=== PATIENT | male | born 1960 | race Caucasian/White ===

== ENCOUNTER 2019-01-01 11:51 | Emergency (ER) | payer SELFPAY ==
[~2019-01-01] VITALS: Wt 75.0 kg
[2019-01-01] MEDS ORDERED: ONDANSETRON 4 MG INJ IV STA (12:21)
[2019-01-01] MEDS ORDERED: MECLIZINE 12.5 MG TAB PO ONE (12:30)
[2019-01-01] MEDS ORDERED: SOD CHLORIDE 0.9% 1,000 ML IV ONE (12:30)
[2019-01-01] MEDS ORDERED: IBUP-1542 PO (13:29)
[2019-01-01] MEDS ORDERED: MECL12.574 PO (13:29)
--- NOTE | 2019-01-01 13:46 | ERD ---
ER Documentation Chief Complaint Chief Complaint DIZZINESS AND FEELS THE ROOM SPINNING SINE TODAY. NAUSEA NO CORDOVA OR CP HPI 58-year-old male with past medical history of vertigo presenting to the emergency department, brought in by his son who is assisting with translation from [place]ian to [place]bourgish complaining of dizziness which began this morning when he woke up. He states he feels the room spinning. He denies any headache. He does report associated nausea. Symptoms are worse when turning his head from side to side rapidly. Symptoms are intermittent and last a few seconds and then resolve spontaneously. The patient denies any chest pain, headache, fever, chills, photosensitivity, photophobia, abdominal pain, syncope, or other symptoms at this time. ROS All systems reviewed and are negative except as per history of present illness. Medications Home Meds Active Scripts Ibuprofen* (Motrin*) 600 Mg Tab, 600 MG PO Q6, #30 TAB Prov:XENIA BATEMAN PA-C 01/01/19 Meclizine Hcl* (Antivert*) 12.5 Mg Tab, 12.5 MG PO Q6H PRN for DIZZINESS, #20 T AB Prov:XENIA BATEMAN PA-C 01/01/19 Allergies Allergies: Coded Allergies: No Known Allergy (Unverified , 01/01/19) PMhx/Soc Medical and Surgical Hx: pt denies Surgical Hx Hx Miscellaneous Medical Probl: Yes (Hx Vertigo) Hx Alcohol Use: No Hx Substance Use: No Hx Tobacco Use: No Smoking Status: Never smoker FmHx Family History: No diabetes Physical Exam Vitals Vital Signs Date Temp Pulse Resp B/P (MAP) Pulse Ox O2 O2 Flow FiO2 Time Delivery Rate 01/01/19 97.8 60 18 144/89 100 11:55 (107) Physical Exam Const: No acute distress Head: Atraumatic Eyes: Normal Conjunctiva ENT: Normal External Ears, Nose and Mouth. Neck: Full range of motion. No meningismus. Resp: Clear to auscultation bilaterally Cardio: Regular rate and rhythm, no murmurs Skin: No petechiae or rashes Neuro: M/S: Alert and oriented Face: EOMI, face and pharynx with normal sensation and function Motor: Normal strength throughout Sensation: Normal sensation throughout Speech: Normal Cerebel: Normal coordination Normal gait Normal finger to nose Neur: Awake and alert Psych: Normal Mood and Affect Result Diagram: 01/01/19 1241 01/01/19 1241 Results 24 hrs Laboratory Tests Test 01/01/19 12:41 White Blood Count 7.1 10^3/ul Red Blood Count 5.74 10^6/ul Hemoglobin 16.6 g/dl Hematocrit 48.8 % Mean Corpuscular Volume 85.0 fl Mean Corpuscular Hemoglobin 28.9 pg Mean Corpuscular Hemoglobin Concent 34.0 g/dl Red Cell Distribution Width 11.9 % Platelet Count 207 10^3/UL Mean Platelet Volume 8.8 fl Immature Granulocytes % 0.600 % Neutrophils % 71.0 % Lymphocytes % 20.2 % Monocytes % 5.9 % Eosinophils % 1.7 % Basophils % 0.6 % Nucleated Red Blood Cells % 0.0 /100WBC Immature Granulocytes # 0.040 10^3/ul Neutrophils # 5.1 10^3/ul Lymphocytes # 1.4 10^3/ul Monocytes # 0.4 10^3/ul Eosinophils # 0.1 10^3/ul Basophils # 0.0 10^3/ul Nucleated Red Blood Cells # 0.0 10^3/ul Prothrombin Time 12.6 Sec Prothrombin Time Ratio 1.0 INR International Normalized Ratio 0.93 Activated Partial Thromboplast Time 30.3 Sec Urine Color YELLOW Urine Clarity SLIGHTLY CLOUDY Urine pH 7.0 Urine Specific [place] 1.018 Urine Ketones TRACE mg/dL Urine Nitrite NEGATIVE mg/dL Urine Bilirubin NEGATIVE mg/dL Urine Urobilinogen NEGATIVE mg/dL Urine Leukocyte Esterase NEGATIVE [place]/ul Urine Microscopic RBC 0 /HPF Urine Microscopic WBC 1 /HPF Urine Hemoglobin NEGATIVE mg/dL Urine Glucose NEGATIVE mg/dL Urine Total Protein NEGATIVE mg/dl Sodium Level 142 mmol/L Potassium Level 4.6 mmol/L Chloride Level 103 mmol/L Carbon Dioxide Level 30 mmol/L Anion Gap 9 Blood Urea Nitrogen 20 mg/dl Creatinine 0.93 mg/dl Est Glomerular Filtrat Rate mL/min > 60 mL/min Glucose Level 168 mg/dl Calcium Level 9.6 mg/dl Current Medications Medications Dose Sig/Sole Start Time Status Last (Trade) Ordered Route PRN Stop Time Admin Dose Reason Admin Sodium 1,000 ml @ Q1H ONCE 01/01/19 DC 01/01/19 Chloride 1,000 mls/hr IV 12:30 6/3/19 12:59 13:30 Meclizine 25 mg ONCE ONCE 01/01/19 DC 01/01/19 HCl PO 12:30 01/01/19 12:59 (Antivert) 12:31 Ondansetron 4 mg ONCE STAT 01/01/19 DC 01/01/19 HCl (Zofran IV 12:21 01/01/19 12:59 Inj) 12:25 [place] [id number] Radiology Main Line: [phone] DIAGNOSTIC IMAGING REPORT Patient: PADDY BAKER : 1960 Age: 58 Sex: M MR #: [id number] DOS: 01/01/19 1221 Ordering MD: XENIA BATEMAN PA-C [facility] Room/Bed: PROCEDURE: CT Brain without contrast. CLINICAL INDICATION: Headache. TECHNIQUE: A CT of the brain without contrast was performed utilizing axial sections from the skull base through the vertex. One or more the following does reduction techniques were utilized: Automated exposure control, adjustment of the mA/ or kV according to patient's size, or use of iterative reconstruction technique. Total exam CTDIvol is 38 MGy and DLP is 634 mGy-cm. DICOM images are available. COMPARISON: None available. FINDINGS: The ventricles and sulci are mildly prominent indicative of volume loss. There is no intracranial hemorrhage, mass effect or midline shift. No abnormal intra- axial or extra-axial fluid collections are seen. The winston/white matter differentiation is well preserved. There are mild scattered foci of hypoattenuation in the periventricular, deep, and subcortical white matter, which are nonspecific in etiology but likely reflect chronic small vessel ischemic changes. The visualized paranasal sinuses are essentially clear. IMPRESSION: 1. No acute intracranial hemorrhage, transcortical infarction or mass effect. 2. Mild chronic small vessel ischemic changes. 3. Mild generalized cerebral volume loss. RPTAT: HH .Keerthi Zhang MD, MD Date Time Electronically viewed and signed by .Keerthi Zhang MD, MD on 01/01/2019 12:57 .N/ CC: XENIA BATEMAN PA-C [phone] Procedures/MDM 58-year-old male presenting to the emergency department complaining of intermittent dizziness for the past 1 day. History, physical examination, work- up most consistent with benign positional vertigo. Much lower suspicion for CVA, TIA, intracranial hemorrhage, central cause of vertigo, or other emergencies. Laboratory studies were essentially unremarkable. CT head without contrast showed no acute findings and the full report interpreted by the radiologist may be viewed above. Patient was advised to have 24 to 48-hour follow-up with his primary care physician and return to the department immediately for any new or worsening or concerning symptoms. He was in agreement with the diagnosis, plan, need for follow-up, return precautions and his questions and concerns were addressed prior to discharge. Patient's blood pressure was elevated (>120/80) but appears stable without evidence of hypertension emergency or urgency. The patient is to follow-up and pursue outpatient monitoring and therapy with their primary care physician within 1 week and return immediately if they have any new, worsening, or concerning symptoms. Departure Diagnosis: Primary Impression: Dizziness Condition: Fair Patient Instructions: Dizziness (Vertigo) and Balance Problems: Ensuring Your Safety Referrals: [facility] Usted se cordova hecho un examen mdico de control que le indica que no est en jared condicin que requiera tratamiento urgente en el Departamento de Emergencia. Un estudio ms profundo y el tratamiento de schultz condicin pueden esperar sin ningn riesgo hasta que usted sea atendida/o en el consultorio de schultz mdico o jared clnica. Es responsabilidad suya arreglar jared crow para el seguimiento del loc. MANEJO DE CONDICIONES NO URGENTES EN EL FUTURO 1) Si usted tiene un mdico de atencin primaria: Usted debera llamar a schultz mdico de atencin primaria antes de venir al departamento de emergencia. Despus de las horas de consultorio, schultz doctor o schultz asociado/a est disponible por telfono. El mdico o enfermero de spencer en el servicio telefnico puede asesorarle por juan c medio para atender el problema, o loc contrario se puede programar jared crow. 2) Si usted no tiene un mdico de atencin primaria: Llame al mdico o clnica de referencia que aparece abajo ajay las horas de consultorio para hacer jared crow para que le vean. CLINICAS: [facility] [phone] [facility] [facility] [phone] [facility] [phone] [facility] [place] [id number] [phone] [facility]. [place] [id number] [phone] [facility]. [phone] [address] Additional Instructions: Llame al doctor MAANA y alyssa jared CROW PARA DENTRO DE 1-2 GUERRIER.Dgale a la secretaria que nosotros le instruimos hacer esta crow.Avise o llame si schultz condicin se empeora antes de la crow. Regresa aqui si peor o no mejor. XENIA BATEMAN PA-C Jan 01, 2019 13:46
[2019-01-01 13:52] VITALS: BP 161/88; PULSE 56; RESP 16
== END 2019-01-01 14:21 | disposition home or self-care (01) ==
LOC: FTE 11:51
DX: R42 Dizziness and giddiness (principal)
CPT/HCPCS: 36415; 70450; 80048; 81001; 85025; 85610; 85730; 96374; 99285; J2405; J7030; 81003